=== PATIENT | male | born 1980 | race Caucasian/White ===

== ENCOUNTER 2016-05-31 07:54 | Emergency (ER) | payer OTHER ==
[2016-05-31] MEDS ORDERED: KETOROLAC 60 MG/2 ML VIAL ONE (07:57)
[2016-05-31] MEDS ORDERED: KETOROLAC 60 MG/2 ML VIAL IM STA (08:03)
--- NOTE | 2016-05-31 08:13 | ED Physician Documentation ---
History of Present Illness - Stated complaint Stated Complaint: LT SHOULDER INJURY - Chief complaint Chief Complaint: Ext Problem - Additonal information Additional information: hx from pt 35 male hx recurrent should sublux or dislocate - has always been able to reduce himself by bending at the wast and pulling arm straight down today was just leaning on a counter at work and it came out could not reduce himself last ate last night Review of Systems Musculoskeletal: reports: Joint pain PD PAST MEDICAL HISTORY - Past Medical History Past Medical History: No - Past Surgical History Past Surgical History: No - Present Medications Home Medications: Ambulatory Orders Medication Instructions Recorded Confirmed Ibuprofen [Motrin] 400 mg PO Q6H PRN #30 tablet 05/31/16 Oxycodone HCl/Acetaminophen 1 each PO Q6HR PRN #10 tablet 05/31/16 [Percocet 5-325 mg Tablet] - Allergies Allergies/Adverse Reactions: Allergies Allergy/AdvReac Type Severity Reaction Status Date / Time dimetap AdvReac Anxiety Uncoded 05/31/16 07:57 - Social History Does the pt smoke?: No Smoking Status: Never smoker Does the pt drink ETOH?: Yes Does the pt have substance abuse?: No - Immunizations Immunizations: TDAP >10years/unknown PD ED PE NORMAL - Vitals Vital signs reviewed: Yes - General General: Alert and oriented X 3 - Extremities Extremities: Other (no merari defor,ity, TTP ant upper chest wall but humeral head not palpable, no step off, no defect palpale lateraly, prefers to hold arm int rotated and ABD with elbow bent, MSV intact including deltoid region) Results - Vitals Vitals: Vital Signs - 24 hr 05/31/16 07:55 Temperature 36.9 C Heart Rate 101 H Respiratory 18 Rate Blood Pressure 159/78 H O2 Saturation 100 Oxygen O2 Source Room air - Rads (name of study) shoulder Radiology: See rad report (posterior dislocation) shoulder2 Radiology: See rad report (reduced no fx) PD MEDICAL DECISION MAKING - ED course ED course: shoulder reduced by ortho after intrarticular lido/marcaine - no conscious sedation Departure - Departure Disposition: 01 Home, Self Care Clinical Impression: Dislocation, shoulder closed Qualifiers: Encounter type: initial encounter Laterality: left Qualified Code(s): S43.005A - Unspecified dislocation of left shoulder joint, initial encounter Condition: Good Follow-Up: Paxton Duque MD [Provider Admit Priv/Credential] - Prescriptions: Oxycodone HCl/Acetaminophen [Percocet 5-325 mg Tablet] 1 each PO Q6HR PRN #10 tablet PRN Reason: Severe Pain Ibuprofen [Motrin] 400 mg PO Q6H PRN #30 tablet PRN Reason: Pain Comments: Wear the sling for the next week. But do some gentle below the shoulder range of motion exercises daily to prevent the joint from freezing. Ice and motrin for pain - only take the percocet for severe pain Please get your blood pressure rechecked - it was high today Forms: Activity restrictions
[2016-05-31] MEDS ORDERED: oxyCOD/ACETAMIN 5 MG/325 MG TABLET PO STA (08:50)
[2016-05-31] MEDS ORDERED: CYCLOBENZAPRINE 10 MG TABLET PO STA (08:50)
[2016-05-31] MEDS ORDERED: oxyCOD/ACETAMIN 5 MG/325 MG TABLET PO ONE (09:02)
[2016-05-31] MEDS ORDERED: CYCLOBENZAPRINE 10 MG TABLET PO ONE (09:02)
--- NOTE | 2016-05-31 09:05 | XRAY Preliminary Report ---
Exam: XR Shoulder 3 View LT IMPRESSION: Posterior dislocation left humeral head without associated fracture. [facility] SITE ID: [id number]
--- NOTE | 2016-05-31 09:07 | XRAY Report ---
EXAM: LEFT SHOULDER RADIOGRAPHY, 3 VIEWS EXAM DATE: 05/31/2016 08:18 AM. CLINICAL HISTORY: 35-year-old male presents with shoulder pain. History of multiple left shoulder dis locations. COMPARISON: None. TECHNIQUE: AP, Grashey and Y views. FINDINGS: Bones: Normal. No fracture or bone lesion. Joints: Posterior dislocation of the left humeral head. No joint effusion. A.c. joint unremarkable. Soft tissues: The visualized hemithorax is unremarkable. No soft tissue swelling. IMPRESSION: Posterior dislocation left humeral head without associated fracture. [facility] Referring Provider Line: [phone] SITE ID: [id number]
[2016-05-31] MEDS ORDERED: ONDANSETRON 4 MG/2 ML VIAL IVP STA (09:24)
[2016-05-31] MEDS ORDERED: SODIUM CHLORIDE 0.9% 1,000 ML IV ONE (09:24)
[2016-05-31] MEDS ORDERED: MORPHINE 2 MG/ML SYRINGE IVP STA (09:24)
[2016-05-31] MEDS ORDERED: PROMETHAZINE INJ 25 MG in SODIUM CHLORIDE 0.9% 50 ML IV STA (09:26)
--- NOTE | 2016-05-31 10:41 | XRAY Preliminary Report ---
Exam: XR Shoulder 3 View LT IMPRESSION: Normal shoulder radiography. Recent posterior left shoulder dislocation has been reduced. No radiographic evidence for fracture. [facility] SITE ID: [id number]
--- NOTE | 2016-05-31 10:44 | XRAY Report ---
EXAM: Left Shoulder Radiography EXAM DATE: 05/31/2016 10:17 AM. CLINICAL HISTORY: Reduced. COMPARISON: Left shoulder series earlier same day. TECHNIQUE: 3 views. FINDINGS: Bones: Normal. No fracture or bone lesion. Joints: The glenohumeral and acromioclavicular joints are normal. Soft Tissues: The visualized hemithorax is unremarkable. No soft tissue swelling. IMPRESSION: Normal shoulder radiography. Recent posterior left shoulder dislocation has been reduced. No radiographic evidence for fracture. [facility] Referring Provider Line: [phone] SITE ID: [id number]
--- NOTE | 2016-05-31 10:47 | CONSULTATION NOTE ---
DATE OF CONSULTATION: 05/31/2016 00:00:00 REQUESTING PROVIDER: Dea Phillips MD REASON FOR CONSULTATION: Posterior left shoulder dislocation. 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 These have all been able to be self-reduced by the patient by relaxation and dangling his arm. Today, he leaned on his elbows jaylene ding over a table and had the left shoulder dislocate. He could not reduce it on his own so he came t o the emergency room. The patient may have had a previous right shoulder incident while throwing a ba ll, but only one time and it also required a mild amount of relaxation to fall back in place. The pat ient has not ever had neurologic compromise or muscle weakness, nor has he had a specific defined inj ury to his shoulders. PHYSICAL EXAMINATION: The patient's exam reveals him to be lying on a gurney and he is holding his le ft wrist with his shoulder not grossly appearing abnormal, but very tender and with some muscle spasm and pain in the left shoulder. The patient's neurovascular exam is normal. X-rays reveal a posterior shoulder dislocation without evidence of bony abnormality otherwise. IMPRESSION: History of recurrent posterior left shoulder dislocation with very minimal traumatic hist ory and requiring closed reduction and this was performed with the patient's consent by infiltrating into the shoulder with 10 mL of 1% lidocaine and 10 mL of 0.25% Marcaine. About 7-10 minutes later, t he patient stood and was comfortable and his arm was placed into direct longitudinal traction with co untertraction with my left hand on his scapula and clavicle. After a period of sustained traction, th e patient's shoulder reduced and the patient was much more comfortable and x-rays confirmed that he w as concentrically reduced without fracture. PLAN: For the patient to be placed into a sling, to be given pain medication, and to schedule an offi ce visit in followup. I have talked to him about management of his problem and will further discuss t his when he comes to his clinic appointment. He is advised not to work or do any heavy lifting, push- ups or weight lifting with his shoulder. JOB #: [id number] [facility] JOB #:[id number]
[2016-05-31 10:56] VITALS: BP 131/81
== END 2016-05-31 11:04 | disposition home or self-care (01) ==
LOC: ED 07:54
DX: M24.412 Recurrent dislocation, left shoulder (principal); X58.XXXA Exposure to other specified factors, initial encounter; Y93.89 Activity, other specified; Y92.89 Other specified places as the place of occurrence of the external cause; Y99.0 Civilian activity done for income or pay; R03.0 Elevated blood-pressure reading, without diagnosis of hypertension
CPT/HCPCS: 23650; 73030; 96372; 99283; 99284; A9270

== ENCOUNTER 2016-07-19 13:54 | Outpatient (CLI) | payer OTHER | END 2016-07-19 13:55 | disposition home or self-care (01) | DX: S42.295A Other nondisplaced fracture of upper end of left humerus, initial encounter for closed fracture (principal); S43.402A Unspecified sprain of left shoulder joint, initial encounter; S43.432A Superior glenoid labrum lesion of left shoulder, initial encounter; R60.0 Localized edema ==

== ENCOUNTER 2023-10-21 11:02 | Emergency (ER) | payer OTHER ==
[2023-10-21 11:17] VITALS: BP 166/92; O2SAT 99
--- NOTE | 2023-10-21 11:43 | ED Physician Documentation ---
PD HPI UPPER EXT INJURY - Stated complaint Stated Complaint: RT HAND LAC - Chief complaint Chief Complaint: Laceration - History obtained from History obtained from: Patient - Additonal information Additional information: 43-year-old right-handed gentleman sustained a blunt force laceration in the webspace between the first and second fingers of the right hand at work just prior to arrival. Not up-to-date but refusing tetanus vaccination. PD PAST MEDICAL HISTORY - Past Medical History Past Medical History: No - Past Surgical History Past Surgical History: No - Present Medications Home Medications: Ambulatory Orders Medication Instructions Recorded Confirmed No Known Home Medications 10/21/23 10/21/23 - Allergies Allergies/Adverse Reactions: Allergies Allergy/AdvReac Type Severity Reaction Status Date / Time dimetap AdvReac Anxiety Uncoded 10/21/23 11:13 - Social History Does the pt smoke?: No Smoking Status: Never smoker Does the pt drink ETOH?: Yes Does the pt have substance abuse?: No - Immunizations Immunizations: TDAP >10years/unknown PD ED PE NORMAL - Vitals Vital signs reviewed: Yes - General General: Alert and oriented X 3 - Extremities Extremities: Other (There is a 2 cm stellate flap laceration in the dorsal first webspace of the right hand without distal neurovascular compromise.) Results - Vitals Vitals: Vital Signs - 24 hr 10/21/23 11:08 Temperature 36.5 C Heart Rate 74 Respiratory 16 Rate Blood Pressure 166/92 H O2 Saturation 99 Oxygen O2 Source Room air Procedures - Laceration (location) R hand Length in cm: 2 Wound type: Curved, Stellate, Irregular, Flap Neurovascular status: Sensory intact, Motor intact Tendon involvement: Tendon intact Anesthesia: Lidocaine 1% with epi Wound preparation: Irrigated copiously NS Skin layer closure: Nylon, Interrupted, Size #-0 - enter number ([phone]), Sutures - enter # (5) PD Medical Decision Making - ED course Complexity details: other (L&[place] [id number] completed and submitted) Departure - Departure Disposition: 01 Home, Self Care Clinical Impression: Laceration Condition: Good Record reviewed to determine appropriate education?: Yes Instructions: ED Laceration Hand Comments: Come back for any signs of infection which would include: Redness, swelling, drainage, increased pain, or fevers. You can wash it soap and water. Keep it covered and moist with bacitracin ointment which is available over the counter; avoid neosporin. Follow-up with your physician in about 14 days for suture removal. Forms: PCP List
== END 2023-10-21 12:22 | disposition home or self-care (01) ==
LOC: ED 11:02
DX: S61.411A Laceration without foreign body of right hand, initial encounter (principal); W45.8XXA Other foreign body or object entering through skin, initial encounter; Y92.69 Other specified industrial and construction area as the place of occurrence of the external cause; Y99.0 Civilian activity done for income or pay
CPT/HCPCS: 1040M; 12001; 99281